=== PATIENT | female | born 2000 | race Caucasian/White ===

== ENCOUNTER 2020-02-27 07:29 | Emergency (ER) | payer OTHER ==
[~2020-02-27] VITALS: Ht 152.4 cm; Wt 53.8 kg
--- NOTE | 2020-02-27 08:30 | PHYS DOC ---
Adult General Chief Complaint Chief Complaint: ABDOMINAL PAIN IN HPI HPI Patient left without being seen by provider EKG EKG [] Radiology/Procedures Radiology/Procedures [] Heart Score Risk Factors: Risk Factors: DM, Current or recent (<one month) smoker, HTN, HLP, family history of CAD, obesity. Risk Scores: Risk Factors: DM, Current or recent (<one month) smoker, HTN, HLP, family history of CAD, obesity. Course & Med Decision Making Course & Med Decision Making Patient left without being seen by provider Anais Disclaimer Anais Disclaimer This electronic medical record was generated, in whole or in part, using a voice recognition dictation system. Departure Departure: Disposition: 07 AMA/ELOPED/LWBS Referrals: PCP,IZZY (PCP) ROSA ISELA SHEFFIELD DO Feb 27, 2020 08:30
== END 2020-02-27 07:35 | disposition left against medical advice (07) ==
LOC: ER 07:29
DX: O26.891 Other specified pregnancy related conditions, first trimester (principal)
CPT/HCPCS: 99281